=== PATIENT | male | born 1965 | race Caucasian/White ===

== ENCOUNTER 2018-01-21 09:05 | Emergency (ER) | payer OTHER ==
[~2018-01-21] VITALS: Ht 172.7 cm; Wt 140.6 kg
[~2018-01-21 09:05] MED LIST: APHEN325 MG; ASPIRIN EC81 M1; GLUCOPHAGE500 MG; LOPID600 MG; PROTONIX40 M2
[2018-01-21 09:39] LABS: ABSOLUTE BASOPHILS 0.1 thou/uL (0.0-0.2); ABSOLUTE EOSINOPHILS 0.3 thou/uL (0.0-0.7); ABSOLUTE LYMPHOCYTES 1.6 thou/uL (0.8-5.3); ABSOLUTE MONOCYTES 0.7 thou/uL (0.0-1.2); ABSOLUTE NEUTROPHILS 4.2 thou/uL (1.6-8.1); BASOPHILS 1.6 %; HEMATOCRIT 46.6 % (42.0-52.0); HEMOGLOBIN 15.9 gm/dL (14.0-18.0); LYMPHOCYTES 23.1 %; MCH 29.1 pg (26.0-34.0); MCHC 34.1 g/dL (28.0-37.0); MCV 85.4 fL (80.0-100.0); MONOCYTES 9.8 %; MPV 7.9 fl. (7.2-11.1); NUCLEATED RBCS 0 /100WBC; PLATELET COUNT* 237 thou/uL (150-400); POLYS 61.5 %; RBC 5.45 mil/uL (4.50-6.00); RDW-CV 13.6 % (10.5-14.5); WBC 6.9 thou/uL (4.0-11.0)
[2018-01-21 09:46] LABS: ANION GAP 8 mmol/L (7-16); BUN 17 mg/dL (7-18); CHLORIDE 104 mmol/L (98-107); CO2 28 mmol/L (21-32); CREATININE 0.9 mg/dL (0.6-1.3); GLUCOSE 135 mg/dL (70-99); INR 1.1; POTASSIUM 3.9 mmol/L (3.5-5.1); PROTIME 10.5 Seconds (9.20-11.50); SODIUM 140 mmol/L (136-145)
[2018-01-21 09:53] LABS: ALBUMIN 3.8 g/dL (3.4-5.0); ALKALINE PHOSPHATASE 55 U/L (46-116); SGOT 30 U/L (15-37); SGPT 36 U/L (30-65); TOTAL BILIRUBIN 0.6 mg/dL (<0.1-1.0); TOTAL PROTEIN 7.6 g/dL (6.4-8.2); TROPONIN-I LEVEL <0.06 ng/mL (<0.06)
[2018-01-21 10:10] VITALS: BP 142/72
--- NOTE | 2018-01-22 10:23 | EKG ---
[place] [address] ELECTROCARDIOGRAM REPORT Name: LANCE TRACY Room: [facility]#: [id number] Admission: 01/21/18 Attend Phys: Discharge: 01/21/18 Date of : 63 Report #: [id number] THIS REPORT FOR: //name// [facility] ED Test Date: 2018-01-21 Test Time: 09:13:24 Pat Name: LANCE TRACY Department: Room: Gender: M Control Chemist: JOSIE RANDOLPH : 1965 Requested By: Eugenio Owusu Order Number: [id number] MD: Vitaliy Delatorre Measurements Intervals [place] Rate: 71 P: 43 IA: 145 QRS: -42 QRSD: 100 T: 38 QT: 402 QTc: 437 Interpretive Statements Sinus rhythm Left axis deviation Low voltage, precordial leads Compared to ECG 09/22/2012 09:23:17 Left-axis deviation now present Electronically Signed On 01-22-2018 10:22:54 CDT by Vitaliy Delatorre [email or web address] <ELECTRONICALLY SIGNED> By: Vitaliy Delatorre MD, [facility] 01/22/18 1022 2 2 Vitaliy eDlatorre MD, [facility] /EPI
== END 2018-01-21 10:11 | disposition home or self-care (01) ==
LOC: M.ERS 09:05
PROVIDERS: Family Medicine
DX: R20.2 Paresthesia of skin (principal); E11.9 Type 2 diabetes mellitus without complications; E78.00 Pure hypercholesterolemia, unspecified